=== PATIENT | male | born 1995 | race American Indian/Alaskan Native ===

== ENCOUNTER 2018-03-28 17:05 | Emergency (ER) | payer OTHER ==
[2018-03-28 17:30] VITALS: BP 111/76
== END 2018-03-28 23:10 | disposition left against medical advice (07) ==
LOC: ED 17:05
DX: M54.9 Dorsalgia, unspecified (principal); Z53.21 Procedure and treatment not carried out due to patient leaving prior to being seen by health care provider

== ENCOUNTER 2018-04-29 00:39 | Emergency (ER) | payer SELFPAY ==
[2018-04-29 00:57] VITALS: BP 129/59
[2018-04-29] MEDS ORDERED: BENADRYL PO ONE (02:16)
--- NOTE | 2018-04-29 05:55 | Emergency Department Report ---
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 Eyes the loading boxes all day ED Review of Systems ROS: Stated complaint: RASH UPPER TORSO Other details as noted in HPI Constitutional: denies: chills, fever Eyes: denies: eye pain, eye discharge, vision change ENT: denies: ear pain, throat pain Respiratory: denies: cough, shortness of breath, wheezing Cardiovascular: denies: chest pain, palpitations Endocrine: no symptoms reported Gastrointestinal: denies: abdominal pain, nausea, diarrhea Genitourinary: denies: urgency, dysuria Musculoskeletal: denies: back pain, joint swelling, arthralgia Skin: rash, pruritus, other (eyes to trauma neck back bilateral upper extremities) Neurological: denies: headache, weakness, paresthesias Psychiatric: denies: anxiety, depression Hematological/Lymphatic: denies: easy bleeding, easy bruising ED Past Medical Hx - Past Medical History Previous Medical History?: No - Surgical History Past Surgical History?: No - Social History Smoking Status: Current Every Day Smoker Substance Use Type: None - Medications Home Medications: Home Medications Medication Instructions Recorded Confirmed Last Taken Type EPINEPHrine [Epipen 2-Stanton] 0.3 mg IJ PRN PRN #1 auto.injct 04/29/18 Unknown Rx Famotidine [Pepcid] 20 mg PO BID 7 Days #14 tablet 04/29/18 Unknown Rx diphenhydrAMINE [Benadryl CAP] 25 mg PO Q8HR 7 Days #21 capsule 04/29/18 Unknown Rx predniSONE [Deltasone] 20 mg PO QDAY #5 tab 04/29/18 Unknown Rx Rash Exam - Exam General: Vital signs noted. No distress. Alert and acting appropriately. HEENT: No Periorbital Edema, No Conjuctival Injection, No Chemosis, No Perioral Edema, No Tongue Edema, No Uvular Edema, No Compromised Airway, No Drooling Lungs: Yes Good Air Exchange (Normal Breath Sounds), No Wheezes, No Ronchi, No Stridor, No Cough, No Labored Respirations, No Retractions, No Use of Accessory Muscles, No Other Abnormal Lung Sounds Heart: Yes Regular, No Murmur Skin: Yes Urticarial Rash, Yes Erythema, No Maculopapular Rash, No Morbilliform rash, No Bulla(e), No Excoriations, No Weeping, No Tenderness, No Edema, No Encrustations Other: Positive: Abdomen Normal, Neurologic Normal, Musculoskeletal Normal ED Course Vital Signs 04/29/18 00:49 Temperature 98.6 F Pulse Rate 88 Respiratory 18 Rate Blood Pressure 129/59 O2 Sat by Pulse 97 Oximetry - Reevaluation(s) Reevaluation #1: Benadryl 04/29/18 05:53 04/29/18 05:53 ED Medical Decision Making - Medical Decision Making This is a simple contact dermatitis 7 was relieved with Benadryl by mouth given in ED triage hives over his DISTAL patient is a/ O 3 no respiratory distress no wheezing or stridor airway is patent lungs are clear no abdominal nausea vomiting no dizziness no lightheadedness hives present at this time plan Benadryl Pepcid prednisone 5-7 days discuss use of EpiPen the patient patient verbalizes understanding and agreement saying follow-up with PCP in 2-3 days and return ED should symptoms worsen patient will be DC'd to home in stable condition at this time Critical care attestation.: If time is entered above; I have spent that time in minutes in the direct care of this critically ill patient, excluding procedure time. ED Disposition Clinical Impression: Allergic reaction Qualifiers: Encounter type: initial encounter Qualified Code(s): T78.40XA - Allergy, unspecified, initial encounter Contact dermatitis Qualifiers: Contact dermatitis type: allergic Contact dermatitis trigger: unspecified trigger Qualified Code(s): L23.9 - Allergic contact dermatitis, unspecified cause Disposition: DC-01 TO HOME OR SELFCARE Is pt being admited?: No Does the pt Need Aspirin: No Condition: Good Instructions: Urticaria (ED), Allergies (ED), Epinephrine (Injection) Prescriptions: diphenhydrAMINE [Benadryl CAP] 25 mg PO Q8HR 7 Days #21 capsule EPINEPHrine [Epipen 2-Stanton] 0.3 mg IJ PRN PRN #1 auto.injct PRN Reason: severe allergic reaction Famotidine [Pepcid] 20 mg PO BID 7 Days #14 tablet predniSONE [Deltasone] 20 mg PO QDAY #5 tab Referrals: [facility] [place] [Outside] - 3-5 Days Forms: Work/School Release Form(ED) Time of Disposition: 06:00
== END 2018-04-29 06:06 | disposition home or self-care (01) ==
LOC: ED 00:39
DX: L23.9 Allergic contact dermatitis, unspecified cause (principal); F17.200 Nicotine dependence, unspecified, uncomplicated
CPT/HCPCS: 99282